=== PATIENT | female | born 1995 | race Caucasian/White ===

== ENCOUNTER 2019-04-02 14:53 | Outpatient (CLI) | payer OTHER, SELFPAY ==
--- NOTE | ~2019-04-02 | XR_ITS ---
EXAMINATION: CT abdomen pelvis wo con, XR abdomen/kub 1V DATE: 04/02/2019 15:27 (accession [id number]), 04/02/2019 15:18 (accession [id number]) INDICATION: Back pain. Hematuria. TECHNIQUE: Computed tomography (CT) of the abdomen and pelvis was performed without intravenous contr ast. The dose-length product was 582.45 mGy-cm. Automated exposure control and iterative reconstructi on technique were employed. Correlative KUB. COMPARISON: None. FINDINGS: Lung bases are unremarkable. Heart size normal. No pleural or pericardial effusion. No significant vascular abnormality. No lymphadenopathy. There is a 3 mm left UVJ stone with moderate left hydroureteronephrosis and periureteral edema. There are nonobstructing bilateral renal stones. The UVJ stone is identifiable on KUB. The liver, spleen, pancreas, adrenal glands are unremarkable. Nonobstructive bowel gas pattern. Jerrica l appendix. No abnormal pelvic masses or fluid collections. Gallbladder is present. IMPRESSION: 1. 3 mm left UVJ stone with moderate left hydroureteronephrosis. 2: Bilateral nephrolithiasis. Reviewed, dictated and finalized at location A. EM SUPPORT ANALYST IMPRESSION: 1. 3 mm left UVJ stone with moderate left hydroureteronephrosis. 2: Bilateral nephrolithiasis.
[2019-04-02 15:52] LABS: Hematocrit 42.6 % (37.0-47.0); Hemoglobin 14.1 g/dL (12.0-15.0); Mean Corpuscular HGB Conc 33.1 g/dl (32-36); Mean Corpuscular Volume 87.5 fl (80-100); Platelet Count Result 326 k/mm3 (150-375); Red Blood Count 4.87 M/mm3 (4.2-5.4); Red Cell Distribution Width 12.5 % (11.5-14.5); White Blood Count 13.9 K/mm3 (4.5-10.0)
[2019-04-02 16:03] LABS: Blood Urea Nitrogen 9 mg/dL (7-17); Calcium 9.7 mg/dL (8.4-10.2); Carbon Dioxide 25 mmol/L (22-30); Chloride 106 mmol/L (98-107); Estimated Glomerular Filt Rate > 60; Glucose 104 mg/dL (65-105); Potassium 4.4 mmol/L (3.4-5.0); Sodium 141 mmol/L (137-145)
== END 2019-04-02 14:54 | disposition home or self-care (01) ==
PROVIDERS: PCP Family Medicine; Visit Provider Nurse Practitioner Family
DX: M54.9 Dorsalgia, unspecified (principal); N20.2 Calculus of kidney with calculus of ureter
CPT/HCPCS: 36415; 74018; 74176; 80048; 85027

== ENCOUNTER 2022-05-08 14:42 | Emergency (ER) | payer OTHER, SELFPAY ==
--- NOTE | ~2022-05-08 | XR_ITS ---
EXAMINATION: XR chest 2V DATE: 05/08/2022 15:23 INDICATION: Kelly of front of body. TECHNIQUE: Frontal and lateral views of the chest were obtained. COMPARISON: CT abdomen and pelvis 04/02/2019 FINDINGS: The chest demonstrates clear lungs without pneumonia, pleural effusion, or pneumothorax. Th e heart size is normal. IMPRESSION: 1. No acute cardiopulmonary disease. Reviewed, dictated and finalized at location A. PRESIDENT OF TALENT ACQUISITION
[2022-05-08 14:45] VITALS: BP 147/109; PULSE 84; RESP 18; TEMP 36.6; O2SAT 100
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
[2022-05-08] MEDS: MORPHINE SULFATE (*CRX) 4 MG/ML INJ IM (15:06)
[2022-05-08] MEDS: LACTATED RINGERS 2,000 ML 999 ML IV CONT (15:08)
[2022-05-08] MEDS: TETANUS,DIPHTHERIA,AC PERTUSSIS ADULT 0.5 ML (ADACEL) IM (15:08)
[2022-05-08] MEDS: BACITRACIN OINTMENT 15 GM TUBE 1 APPLIC TOPICAL (15:09)
[2022-05-08 15:18] LABS: Basophils Absolute Auto 0.08 K/mm3 (0.00-0.10); Basophils Percent Auto 0.8 % (0.0-1.0); Eosinophils Absolute Auto 0.41 K/mm3 (0.02-0.50); Hematocrit 42.8 % (35.0-49.0); Hemoglobin 14.3 g/dL (12.0-15.0); Immature Granulocyte Absolute 0.03 K/mm3 (0.00-0.00); Immature Granulocyte Percent A 0.3 % (0.0-0.0); Lymphocytes Absolute Auto 2.84 K/mm3 (1.10-4.50); Mean Corpuscular HGB Conc 33.4 g/dL (32.0-36.0); Mean Corpuscular Hemoglobin 28.8 pg (27.0-31.0); Mean Corpuscular Volume 86.3 fL (78.0-102.0); Mean Platelet Volume 9.6 fl (9.2-11.8); Monocytes Absolute Auto 0.48 K/mm3 (0.10-0.90); Monocytes Percent Auto 4.7 % (2.0-11.0); Neutrophils Absolute Auto 6.3 K/mm3 (1.7-7.2); Neutrophils Percent Auto 62.2 % (50.0-70.0); Platelet Count Result 323 K/mm3 (150-420); Red Blood Count 4.96 M/mm3 (4.20-5.40); Red Cell Distribution Width 12.5 % (11.6-14.4); White Blood Count 10.2 K/mm3 (4.8-10.8)
[2022-05-08 15:19] LABS: Pregnancy On Board Control Positive; Urine Pregnancy Test Negative
[2022-05-08 15:31] VITALS: BP 143/94; PULSE 82; RESP 16; O2SAT 100
[2022-05-08 15:33] LABS: Alanine Aminotransferase 18 U/L (14-59); Albumin Level 3.5 g/dL (3.4-5.0); Alkaline Phosphatase 86 U/L (46-116); Anion Gap 13 mmol/L (8-16); Aspartate Amino Transferase 18 U/L (15-37); Bilirubin,Total 0.3 mg/dL (0.00-1.00); Blood Urea Nitrogen 11 mg/dL (7-18); Calcium 7.5 mg/dL (8.5-10.1); Carbon Dioxide 23 mmol/L (21-32); Chloride 106 mmol/L (98-108); Estimated CRCL calculation 96 ml/min; Estimated Glomerular Filt Rate > 60; Glucose 99 mg/dL (70-99); Osmolality Calculated 293 mOsm/kg (285-295); Potassium 3.6 mmol/L (3.5-5.1); Sodium 142 mmol/L (136-145); Total Protein 7.4 g/dL (6.4-8.2)
--- NOTE | 2022-05-08 15:37 | PC.NURSE ---
WOUNDS CLEANED AND DRESSED AT THIS TIME. PT HAS IVF INFUSING. SIG OTHER AT BEDSIDE. REG AT BEDSIDE AT THIS TIME. WILL CONTINUE TO MONITOR.
[2022-05-08] MEDS: HYDROmorphone HCL INJ (*CRX) 2 MG/ML VIAL 0.5 MG IV PUSH (15:51)
--- NOTE | 2022-05-08 15:53 | PC.NURSE ---
PT UP TO RR AT THIS TIME WITHOUT DIFFICULTY. WILL CONTINUE TO MONITOR.
[2022-05-08 16:16] VITALS: BP 138/84; PULSE 74; RESP 18; O2SAT 99
--- NOTE | 2022-05-08 16:19 | PC.NURSE ---
NO RESP DISTRESS NOTED. PT IS AWAITING DC. PT IS AWARE OF PLAN OF CARE. VSS. SIG OTHER AT BEDSIDE. WILL CONTINUE TO MONITOR.
--- NOTE | 2022-05-08 16:37 | PC.NURSE ---
PT UP TO RR WITHOUT DIFFICULTY. SIG OTHER AT BEDSIDE. ICE CHIPS PROVIDED. NO TONGUE SWELLING NOTED. NO STRIDOR OR WHEEZING NOTED THUS FAR IN ER VISIT.
[2022-05-08 16:41] VITALS: BP 129/97; PULSE 84; RESP 18; O2SAT 100
[2022-05-08 16:42] VITALS: BP 129/78; PULSE 78; RESP 16; O2SAT 99
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
--- NOTE | 2022-05-08 16:59 | PC.NURSE ---
DRESSINGS WERE CLEAN, DRY, AND INTACT UPON DC.
== END 2022-05-08 16:51 | disposition home or self-care (01) ==
PROVIDERS: Emergency Provider Preventive Medicine Aerospace Medicine
DX: T20.20XA Burn of second degree of head, face, and neck, unspecified site, initial encounter (principal); T24.201A Burn of second degree of unspecified site of right lower limb, except ankle and foot, initial encounter; T22.112A Burn of first degree of left forearm, initial encounter; T20.00XA Burn of unspecified degree of head, face, and neck, unspecified site, initial encounter; T31.0 Burns involving less than 10% of body surface; T31.10 Burns involving 10-19% of body surface with 0% to 9% third degree burns; Z23 Encounter for immunization; X03.8XXA Other exposure to controlled fire, not in building or structure, initial encounter
CPT/HCPCS: 36415; 71046; 80053; 81025; 85025; 90471; 90715; 96361; 96374; 96375; 99284; A9270; J1170; J2270; J7120

== ENCOUNTER 2023-06-10 11:40 | Outpatient (CLI) | payer OTHER, SELFPAY ==
--- NOTE | ~2023-06-10 | US_ITS ---
EXAMINATION: US soft tissue lower back DATE: 06/10/2023 11:54 INDICATION: Right lower back lump. TECHNIQUE: Multiple grayscale and Doppler ultrasound images of the lower back were obtained. COMPARISON: None FINDINGS: There is no abnormal mass in the patient's area of concern in right lower back. IMPRESSION: 1. No abnormal mass in the patient's area of concern in right lower back. Reviewed, dictated and finalized at location A.
== END 2023-06-10 11:41 ==
PROVIDERS: PCP Physician Assistant; Visit Provider Physician Assistant
DX: R22.2 Localized swelling, mass and lump, trunk (principal)
CPT/HCPCS: 76705

== ENCOUNTER 2023-07-10 02:25 | Day surgery (SDC) | payer OTHER, SELFPAY ==
[2023-07-05 09:35] VITALS: BMI 28.1
--- NOTE | 2023-07-05 09:41 | PC.NURSE ---
Report to the Outpatient Waiting Room, entrance under the green pavilion located off [facility], at time _0930_ on date _[id number]_. Planned Procedure Time: _1130_. Time changes happen often and if your time is changed the preop area will call you the afternoon before. - You and your visitor will be asked to self-screen and do not enter if you have any COVID symptoms. - A mask is optional within the hospital at this time. Patients may have clear liquids (water, carbonated beverages, clear teas, apple juice) until 3 hours prior to surgery with a maximum of 20 ounces. - No food from midnight until time of surgery Take the following medications with a SIP of water the morning of surgery: __Bupropion, Lo Loestrin Fe DO NOT STOP ANY OF YOUR OTHER PRESCRIPTION MEDICATIONS PRIOR TO SURGERY ?EXCEPT THE FOLLOWING Medications to discontinue per physician Patient stopped Wegovy [id number] Date to take last dose Please no make-up, nail icelandic, hairspray, perfume, deodorant, or body powder the day of surgery. No jewelry (including any body piercings) or valuables the day of surgery, leave them at home. Please take a shower or bath the night before, or the morning of, surgery with an antibacterial soap. Wear comfortable, loose fitting clothing. - Jewelry must be removed prior to entering the operating room. Rings and piercings that are not removed may be cut off. - The hospital will not accept responsibility for valuables. - Please leave all valuables, including medications, at home the day of surgery. If you are going home after surgery, a licensed cpr ambulance driver must drive you home. - NO public transportation without another adult if you receive anesthesia. - We recommend that an adult stay with you for 24 hours following discharge. - We also recommend that you do not drive, make important decision, drink alcoholic beverages, or take any drugs that were not prescribed by your health care provider for at least 24 hours after your discharge time. Follow any additional instructions given to you from your surgeon. If you or anyone in your household have experienced Covid symptoms in the past week, please notify your surgeon or the nurse liaison at the phone number below for possible testing. Telephone instructions given to __Shelby___and asked if any additional questions and then verbalized understanding. Patient advised to call surgeon office or pre surgery nurse liaison [phone] if any additional questions.
[2023-07-10] VITALS (7 sets, daily range): BP systolic 114–129; BP diastolic 77–90; PULSE 76–107; RESP 14–18; TEMP 36.1–36.8; O2SAT 100; BMI 27.7
--- NOTE | 2023-07-10 10:06 | WPDHPUPDATE1 ---
History and Physical Update Update Date/Time: 07/10/23 10:06 History and Physical has been reviewed, including an updated exam of the patient. There are NO changes in the patient's condition. Risks, benefits, and alternatives have been discussed and questions answered. Patient agrees to proceed with procedure.
[2023-07-10] MEDS: LACTATED RINGERS 1,000 ML 30 ML IV CONT (10:57)
--- NOTE | 2023-07-10 11:35 | WPDANESEPPF ---
Anes - Initial Pre Proc Eval Procedure: Operation Date: 07/10/23 11:00 Proposed Procedures p Excision of Subcutaneous Mass Right Lower Back - Rush Henson MD Date/Time: 07/10/23 11:35 Surgeon: Rush Henson MD Pre Op Diagnosis: right lower back mass 5 cm Patient Data Age: 28 Gender: F Height: 1.73 m Weight: 82.8 kg Last Vital Signs Temp 98.2 F 07/10/23 10:54 Pulse 76 07/10/23 10:54 Resp 14 07/10/23 10:54 BP 114/84 07/10/23 10:54 Pulse Ox 100 07/10/23 10:54 O2 Del Method Room Air 07/10/23 10:54 Allergies Allergy/AdvReac Type Severity Reaction Status Date / Time cefixime AdvReac Intermediate Hives / Verified 07/10/23 10:17 Red Face Home Medications Medication Instructions Recorded Confirmed Type norethindrone 1 mg-ethinyl 1 tablet PO DAILY 05/08/22 07/05/23 History estradiol 10 mcg (24)-iron 10 mcg(2) tablet (Lo Loestrin Fe) bupropion HCl 150 mg 24 hr tablet, 300 mg PO QAM #180 tabs 05/12/23 07/05/23 Rx extended release semaglutide (weight loss) 1.7 1.7 mg (0.75 mL) subcut WEEKLY #3 06/19/23 07/05/23 Rx mg/0.75 mL subcutaneous pen mL injector (Wegovy) cetirizine 10 mg tablet (Zyrtec) 10 mg PO DAILY 07/10/23 07/10/23 History Patient hx anesthesia problems: none Family hx anesthesia problems: none Results Review: All pre-operative results and documents have been reviewed as part of the pre-operative evaluation. [facility] Past Medical History Medical History Anxiety BMI 34.0-34.9,adult BMI 37.0-37.9, adult BMI 38.0-38.9,adult Contact dermatitis Overweight with body mass index (BMI) of 28 to 28.9 in adult Surgical History Surgical History History of tonsillectomy Family History Family History Father Blood clot in vein Heart disease Mother Breast cancer Sibling No problems noted. 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 Informed Consent: The patient's anesthetic plan and its attendant risks and benefits were discussed with the patient/family/POA. Questions were solicited and answers provided to the satisfaction of the patient/family/POA.
--- NOTE | 2023-07-10 12:12 | SUR.OPER ---
Patient questioned preoperatively regarding jewelry, which patient denied. It was noted, however, that the patient had an ear ring left in place in left ear. Preop staff notified.
[2023-07-10] MEDS: BUPIVACAINE/EPINEPHRINE 0.5% 10 ML VIAL 20 ML INFILTRATE (12:30)
--- NOTE | 2023-07-10 13:25 | W.PM.PROC2 ---
Procedure Note - Detailed Date of Procedure 07/10/23 Pre-op Diagnosis right lower back mass 5 cm Post-op Diagnosis Other (Two subcutaneous masses right lower back) Procedure Performed Excision 2 subcutaneous masses right lower back-larger was 9 x 7 cm, smaller one was 6 x 6 cm Surgeon Rush Henson MD [employer] Engineering Process Worker Esther Rankin NATURAL GAS TRADER Anesthesia General and Local Indications Patient has lost a lot a weight and noticed a subcutaneous mass just to the right of midline in her lower back. This seems to be painful and tender. She was seen in the office and is taken to surgery now for excision. Findings The larger, more easily palpable, mass was slightly cephalad to the incision that I had drawn on the patient preoperatively. This larger mass was grossly consistent with a lipoma and measured 9 x 7 cm. Directly under the incision, was a smaller but still sizable subcutaneous mass. This measured 6 x 6 cm and was also grossly consistent with a lipoma. Both were excised with no margin. Description of Procedure Patient was checked in the preoperative holding area. She was in a prone position and the more easily palpable mass was noted. There was a 2nd nodule that was smaller and just caudal to the 1st. I gerardo the proposed incision over the larger mass. Patient was then taken to surgery and IV sedation was administered. She was turned in the prone position and prepped and draped. The incision that I had marked was easily see. Patient then started having some emesis. I infiltrated local anesthetic. However, the nausea, emesis, dry heaves persisted. Patient was then returned to a supine position. She was stabilized by the Department of Anesthesia and eventually induced into general anesthesia with endotracheal tube. She was then returned to a prone position. Prep and drape was again carried out. Transversely oriented incision was made over the area previously marked and anesthetized. We dissected down through the subcutaneous and through Arlene's fascia and then encountered an obvious subcutaneous mass consistent with a lipoma. This was carefully dissected from the surrounding tissues. We dissected it out completely. Its attachments were excised and the mass was removed. Immediately after removal, it was obvious that there was another lipomatous portion that had not been noted during the dissection. This was excised as well. The mass measured 6 x 6 cm. Once this was removed, it was obvious there was even a larger mass just cephalad to that. This subcutaneous mass skin. Appeared to be a lipoma and was carefully dissected from surrounding tissues. We dissected the lipoma out completely and divided any fatty tissue attached to it in the deeper spaces of the wound. Cautery was used for hemostasis but blood loss was very minimal. This mesh was measured and measured 9 x 7 cm. Both of these were shelled out from the wound so there was no margin of normal tissue removed with either of the masses. I checked again for hemostasis and all looked good. 3-0 Vicryl interrupted sutures were used to approximate Arlene's fascia. Subcuticular 4-0 Vicryl sutures were then placed to loosely approximate the skin. Finally a running 4-0 Monocryl was used to close the skin. The wound was dressed with Exofin surgical adhesive. Patient was then returned to a supine position. She was awakened and extubated. She was taken to recovery in good condition. Estimated Blood Loss -5 Drains No Packing No Pathology Yes (Two subcutaneous masses as described above, grossly consistent with lipomas) Complications No immediate complications Condition Stable Disposition PACU [facility] Billing Surgery - Charge Forward: Surgery Billing (Excision 2 subcutaneous masses right lower back with no margin-9 cm and 6 cm.)
== END 2023-07-10 14:34 | disposition home or self-care (01) ==
PROVIDERS: PCP Physician Assistant; Visit Provider Surgery
PROC: (CPT 21931; principal; 2023-07-10 11:00)
DX: D17.1 Benign lipomatous neoplasm of skin and subcutaneous tissue of trunk (principal); F41.9 Anxiety disorder, unspecified; Z79.85 Long-term (current) use of injectable non-insulin antidiabetic drugs
CPT/HCPCS: 21931 ×2; 88304; J0330; J2250; J2405; J2704; J3010; J7120

== ENCOUNTER 2024-01-23 01:54 | Emergency (ER) | payer OTHER, SELFPAY ==
--- NOTE | ~2024-01-23 | XR_ITS ---
Portable chest x-ray Comparison: 05/08/2022 Clinical History: Cough, shortness of breath Findings: There is hazy airspace disease the right midlung, with additional focal airspace disease l eft upper lobe. Cardiomediastinal silhouette is stable. Bones and soft tissues are unremarkable. Impression: Findings suspicious for bilateral pneumonia, as detailed above. Reviewed, dictated and finalized at location . [employer] Impression: Findings suspicious for bilateral pneumonia, as detailed above.
[2024-01-23 01:57] VITALS: BP 132/77; PULSE 116; RESP 18; TEMP 37; O2SAT 100
--- NOTE | 2024-01-23 02:01 | ED.URI ---
HPI - URI/Sore Throat General Chief Complaint: Upper Respiratory Infection Stated Complaint: cough, fever, congestion Source: patient Mode of arrival: ambulatory Limitations: no limitations History of Present Illness HPI Narrative: 28-year-old female with a history of obesity on Wegovy presents to the ED with a 3 day history of -- nonproductive cough -- shortness of breath -- intermittent fever -- chest congestion with burning sensation in her lungs on inspiration. MD elicited complaint: fever and cough Onset (ago): day(s) ( Three days) Consistency: constant Description of mucous: clear Able to tolerate fluids by mouth: Yes Exacerbating factors: nothing Relieving factors: nothing Associated symptoms: denies other symptoms, fever and cough Treatments prior to arrival: none Related Data Home Medications Medication Instructions Recorded Confirmed norethindrone 1 mg-ethinyl 1 tablet PO DAILY 05/08/22 01/23/24 estradiol 10 mcg (24)-iron 10 mcg(2) tablet (Lo Loestrin Fe) cetirizine 10 mg tablet (Zyrtec) 10 mg PO DAILY 07/10/23 01/23/24 bupropion HCl 150 mg 24 hr tablet, 300 mg PO QAM 01/23/24 01/23/24 extended release (Wellbutrin XL) Allergies Allergy/AdvReac Type Severity Reaction Status Date / Time cefixime AdvReac Intermediate Hives / Verified 01/23/24 02:05 Red Face Review of Systems Review of Systems: All systems reviewed & are unremarkable except as noted in HPI and below Constitutional: Constitutional: Reports as per HPI and Reports no additional constitutional complaints Eyes: Eyes: Reports as per HPI and Reports no additional eye complaints ENT: Reports system reviewed and no additional complaints, except as documented and Reports as per HPI Cardiovascular: Cardiovascular: Reports as per HPI and Reports no additional cardiovascular complaints Respiratory: Respiratory: Reports as per HPI, Reports no additional respiratory complaints, Reports chest congestion, Reports cough and Reports dyspnea Gastrointestinal: Gastrointestinal: Reports as per HPI and Reports no additional gastrointestinal complaints Genitourinary: Genitourinary: Reports no additional female genitourinary complaints and Reports as per HPI Musculoskeletal: Musculoskeletal: Reports no additional musculoskeletal complaints and Reports as per HPI Integumentary/Breasts: Skin/Breast: Reports system reviewed and no additional complaints, except as docu and Reports as per HPI Neurologic: Reports system reviewed and no additional complaints, except as documented and Reports as per HPI Psychiatric: Psychiatric: Reports no additional psychiatric complaints and Reports as per HPI Endocrine: Endocrine: Reports no additional endocrine complaints and Reports as per HPI Hematologic/Lymphatic: Hematologic/Lymphatic: Reports no additional hematologic/lymphatic complaints and Reports as per HPI Allergic/Immunologic: Allergic/Immunologic: Reports no additional allergic/immunologic complaints and Reports as per HPI [facility] Past Medical History Medical History Anxiety BMI 34.0-34.9,adult BMI 37.0-37.9, adult BMI 38.0-38.9,adult Contact dermatitis Family history of breast cancer in mother Overweight with body mass index (BMI) of 28 to 28.9 in adult Screening for lipid disorders Screening for thyroid disorder Surgical History Surgical History History of tonsillectomy Family History Family History Father Blood clot in vein Heart disease Mother Breast cancer Sibling No problems noted. 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 Tachycardia. Oxygen saturation of 100% on room air. Const: General: no acute distress Nutritional Appearance: well nourished Orientation/consciousness: patient oriented x3 Limitations: no limitations HENMT: Head: normal to inspection Ears: external ears normal Face/Nose/Sinus: Normal external nose present Face and sinus: normal facial exam Mouth: Yes Normal oral and palatal mucosa present Throat: posterior oropharynx normal Eyes: Conjunctivae: conjunctivae normal Pupils: Equal, round and reactive pupils present EOM: EOMs intact bilaterally Direct Ophthalmoscopy: no photophobia Neck: Neck: normal visual inspection, no lymphadenopathy and no meningeal signs Chest: Chest palpation & inspection: normal inspection of the chest Resp: Effort & Inspection: normal respiratory effort Auscultation: clear to auscultation bilaterally Cardio: Rate: regular rate Rhythm: regular rhythm GI: GI Palp: Yes Soft to palpation Auscultation: normal bowel sounds Other: No tenderness/ rigidity /rebound. Back/Spine/Pelvis: Back: no CVA tenderness Skin: General skin exam: normal color Rashes: no rashes Wounds: no wounds Neuro: General: patient oriented x3, moves all extremities, no meningeal signs, no focal motor deficits and CN's II-XI intact bilaterally Cranial nerves: Yes Nystagmus not present Speech: normal speech Gait exam (Neuro): Normal gait present Extrem: General: normal to inspection and no clubbing, cyanosis or edema Psych: Mental Status: mental status grossly normal Affect: normal affect Attitude: cooperative Course Course Emergency Course: right-sided pneumonia Vital Signs Vital signs: Vital Signs Temperature 37.0 C 01/23/24 01:57 Pulse Rate 116 H 01/23/24 01:57 Respiratory Rate 18 01/23/24 01:57 Blood Pressure 132/77 01/23/24 01:57 Pulse Oximetry 100 01/23/24 01:57 Oxygen Delivery Room Air 01/23/24 01:57 Temperature 37.0 C 01/23/24 01:57 Pulse Rate 116 H 01/23/24 01:57 Respiratory Rate 18 01/23/24 01:57 Blood Pressure 132/77 01/23/24 01:57 Pulse Oximetry 100 01/23/24 01:57 Oxygen Delivery Room Air 01/23/24 02:08 MDM - URI/Sore Throat MDM Narrative Medical decision making narrative: community-acquired pneumonia Differential Diagnosis Differential diagnosis: Likely viral infection, bronchitis and influenza Lab Data Attestation: I reviewed the patient's lab results. 01/23/24 02:15 01/23/24 02:15 Labs: Lab Results 01/23/24 Range/Units 02:15 WBC 7.9 (4.8-10.8) K/mm3 RBC 4.41 (4.20-5.40) M/mm3 Hgb 13.1 (12.0-15.0) g/dL Hct 37.6 (35.0-49.0) % MCV 85.3 (78.0-102.0) fL MCH 29.7 (27.0-31.0) pg MCHC 34.8 (32-36) g/dL RDW 12.6 (11.6-14.4) % Plt Count 220 (150-420) K/mm3 MPV 9.3 (9.2-11.8) fl Immature Gran % (Auto) 0.3 H (0.0-0.0) % Neut % (Auto) 72.7 H (50.0-70.0) % Lymph % (Auto) 19.6 (18.0-42.0) % [place] % (Auto) 6.6 (2.0-11.0) % Eos % (Auto) 0.4 L (1.0-6.0) % Baso % (Auto) 0.4 (0.0-1.0) % Lymph # (Auto) 1.55 (1.10-4.50) K/mm3 [place] # (Auto) 0.52 (0.10-0.90) K/mm3 Eos # (Auto) 0.03 (0.02-0.50) K/mm3 Baso # (Auto) 0.03 (0.00-0.10) K/mm3 Abs Immat Gran (auto) 0.02 H (0.00-0.00) K/mm3 Absolute Neuts (auto) 5.76 (1.70-7.20) K/mm3 Absolute Nucleated RBC 0.00 (0.00-0.00) K/mm3 Nucleated RBC % 0.0 (0-0.0) % Sodium 137 (136-145) mmol/L Potassium 3.4 L (3.5-5.1) mmol/L Chloride 99 (98-108) mmol/L Carbon Dioxide 24 (21-32) mmol/L Anion Gap 14 H (4-12) mmol/L BUN 6 L (7-18) mg/dL Creatinine 1.03 H (0.55-1.02) mg/dL Estim Creat Clear Calc 73 ml/min Estimated GFR > 60 (59 - ) Glucose 94 (70-99) mg/dL Calculated Osmolality 281 L (285-295) mOsm/kg Lactic Acid 0.6 (0.4-2.0) mmol/L Calcium 8.4 L (8.5-10.1) mg/dL Total Bilirubin 0.4 (0.00-1.00) mg/dL AST 14 L (15-37) U/L ALT 9 L (14-59) U/L Alkaline Phosphatase 71 (46-116) U/L Total Protein 7.4 (6.4-8.2) g/dL Albumin 3.3 L (3.4-5.0) g/dL Influenza A (RT-PCR) Negative (Negative) Influenza B (RT-PCR) Negative (Negative) RSV (RT-PCR) Negative (Negative) SARS-CoV-2 RNA (RT-PCR) Negative (Negative) Discharge Plan Discharge Clinical Impression: Community acquired pneumonia Qualifiers: Laterality: right Lung location: upper lobe of lung Qualified Code(s): J18.9 - Pneumonia, unspecified organism Patient Disposition: Home, Self-Care Condition: Stable Instructions: Antibiotic Form, Community Acquired Pneumonia (ED) Patient Language: Beninese Prescriptions: New levofloxacin 750 mg tablet 750 mg PO DAILY 5 Days Qty: 5 0RF No Action Lo Loestrin Fe 1 mg-10 mcg (24)/10 mcg (2) tablet 1 tablet PO DAILY bupropion HCl [Wellbutrin XL] 150 mg tablet extended release 24 hr 300 mg PO QAM Wegovy 2.4 mg/0.75 mL pen injector 2.4 mg subcut WEEKLY Qty: 3 3RF cetirizine [Zyrtec] 10 mg Tablet 10 mg PO DAILY Follow-up/Referrals: Edvin Emerson MD [Primary Care Provider] - Time of Disposition: 04:07
--- NOTE | 2024-01-23 02:12 | PCDIET ---
02:10 covid swab sent to lab
[2024-01-23 02:19] LABS: Basophils Absolute Auto 0.03 K/mm3 (0.00-0.10); Basophils Percent Auto 0.4 % (0.0-1.0); Eosinophils Absolute Auto 0.03 K/mm3 (0.02-0.50); Eosinophils Percent Auto 0.4 % (1.0-6.0); Hematocrit 37.6 % (35.0-49.0); Hemoglobin 13.1 g/dL (12.0-15.0); Immature Granulocyte Absolute 0.02 K/mm3 (0.00-0.00); Immature Granulocyte Percent A 0.3 % (0.0-0.0); Lymphocytes Absolute Auto 1.55 K/mm3 (1.10-4.50); Lymphocytes Percent Auto 19.6 % (18.0-42.0); Mean Corpuscular HGB Conc 34.8 g/dL (32-36); Mean Corpuscular Hemoglobin 29.7 pg (27.0-31.0); Mean Corpuscular Volume 85.3 fL (78.0-102.0); Mean Platelet Volume 9.3 fl (9.2-11.8); Monocytes Absolute Auto 0.52 K/mm3 (0.10-0.90); Monocytes Percent Auto 6.6 % (2.0-11.0); Neutrophils Absolute Auto 5.76 K/mm3 (1.70-7.20); Neutrophils Percent Auto 72.7 % (50.0-70.0); Platelet Count Result 220 K/mm3 (150-420); Red Blood Count 4.41 M/mm3 (4.20-5.40); Red Cell Distribution Width 12.6 % (11.6-14.4); White Blood Count 7.9 K/mm3 (4.8-10.8)
--- NOTE | 2024-01-23 02:30 | PC.NURSE ---
DR. Michaels, ERP at patient bedside at this time providing update and results/plan of care information.
[2024-01-23 02:34] LABS: Alanine Aminotransferase 9 U/L (14-59); Albumin Level 3.3 g/dL (3.4-5.0); Alkaline Phosphatase 71 U/L (46-116); Anion Gap 14 mmol/L (4-12); Aspartate Amino Transferase 14 U/L (15-37); Bilirubin,Total 0.4 mg/dL (0.00-1.00); Blood Urea Nitrogen 6 mg/dL (7-18); Calcium 8.4 mg/dL (8.5-10.1); Carbon Dioxide 24 mmol/L (21-32); Chloride 99 mmol/L (98-108); Estimated CRCL calculation 73 ml/min; Estimated Glomerular Filt Rate > 60; Glucose 94 mg/dL (70-99); Osmolality Calculated 281 mOsm/kg (285-295); Potassium 3.4 mmol/L (3.5-5.1); Sodium 137 mmol/L (136-145); Total Protein 7.4 g/dL (6.4-8.2)
[2024-01-23 02:39] LABS: Lactic Acid Reflex 0.6 mmol/L (0.4-2.0)
[2024-01-23] MEDS: levoFLOXacin 750 MG/D5W 150 ML 750 MG/150 ML BAG 100 MG IVPB (02:51)
--- NOTE | 2024-01-23 02:52 | PC.NURSE ---
IV started per Any and medication infusing. patient awake and alert, denies current needs. lights dimmed for comfort. call light within reach.
[2024-01-23 02:55] LABS: Influenza B QL RT-PCR Negative (Negative); SARS-CoV-2 RNA PCR Negative (Negative)
[2024-01-23 02:56] LABS: Influenza A QL RT-PCR Negative (Negative); RSV RNA, RT-PCR Negative (Negative)
[2024-01-23 04:23] VITALS: BP 109/80; PULSE 117; RESP 18; TEMP 36.8; O2SAT 98
--- NOTE | 2024-01-25 13:10 | PC.NURSE ---
PRELIMINARY BLOOD CULTURE RESULTS: NO GROWTH TO DATE.
== END 2024-01-23 04:25 | disposition home or self-care (01) ==
PROVIDERS: Emergency Provider Internal Medicine Critical Care Medicine; PCP Family Medicine
DX: J18.9 Pneumonia, unspecified organism (principal); Z79.899 Other long term (current) drug therapy; Z20.822 Contact with and (suspected) exposure to COVID-19
CPT/HCPCS: 36415; 71045; 80053; 83605; 85025; 87040; 87637; 96365; 99284; J1956

== ENCOUNTER 2024-03-31 12:55 | Outpatient (CLI) | payer OTHER, SELFPAY ==
--- NOTE | ~2024-03-31 | MM_ITS ---
EXAMINATION: MM screening leonarda BI w richy HISTORY: Screening TECHNIQUE: Craniocaudal and mediolateral oblique 3-D tomosynthesis images were obtained and synthetic 2-D images were generated. CAD analysis was submitted and interpreted. COMPARISON: No prior mammogram is available for comparison at this institution. BREAST PARENCHYMAL COMPOSITION: Not dense: There are scattered areas of fibroglandular density. FINDINGS: There is no evidence of suspicious mass, calcification, or architectural distortion to sugg est malignancy in either breast. There has been no suspicious interval change. IMPRESSION: 1. No mammographic evidence of malignancy. 2. Recommend routine screening mammography in one year. BI-RADS Category 1: Negative Reviewed, dictated and finalized at location A. [employer]
--- OUTSIDE RECORDS SUMMARY | 2024-03-31 13:29 | XMS_ITS | Encounter Summary ---
Author Organization [facility] Address [facility] [place] [address] Care Team Providers Care Orthotic/Prosthetic Clinician Name Role Phone Keyanna Spencer MD Primary Care Provider Encounter Details Date Type Department Care Team (Late st Contact Info) Description 06/27/2018 Lab Requisition [facility] Care DermPath Lab [address] [place] [address] Cielo Neal MD [address] [facility] [address] [place] [address] Social History Tobacco Use Types Packs/Day Years Used Date Smoking Tobacco: Never Assessed Sex and Gender Information Value Date Recorded Sex Assigned at Not on file Gender Identity Not on file Sexual Orientation Not on file documented as of this encounter Plan of Treatment Not on file documented as of this encounter Procedures Procedure Name Priority Date/Time Associated Diagnosis Comments DERMATOPATHOLOGY Routine 06/26/2018 12:0 0 AM CDT documented in this encounter Results * DERMATOPATHOLOGY (06/26/2018 12:00 AM CDT) Case Report Dermatopathology Report ? Case: [id number] ? Authorizing Provider: ??Cielo Neal MD ?Collected: ? 06/26/2018 12:00 AM ? Pathologist: ? Genet Swann MD ? Received: ?06/27/2018 05:54 AM ? Specimen: ?Skin, right eyelid ? 1:05 PM CDT DERMATOPATHOLOGY LABORATORY Final Diagnosis Specimen A. 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 The specimen consists of a shave biopsy measuring 3x3x3 mm. Jar 0. 1:05 PM CDT DERMATOPATHOLOGY LABORATORY Microscopic Description Specimen A. SKIN, right eyelid: There is hyperkeratosis, papillomatosis, and acanthosis of the epidermis. The keratinocytes are mature. 1:05 PM CDT DERMATOPATHOLOGY LABORATORY Disclaimer An external and internal positive and negative controls are appropriate for the histochemical, immunohistochemical and immunofluorescence stain(s) in this case (if any), except where stated explicitly. The performance characteristics of the stain(s) cited in this report were developed and its performance characteristic determined by the Dermatopathology Laboratory at [facility], directed by Dr. Rosalind López. These tests need not be, and therefore are not, approved by the [place] Food and Drug Administration. The tests are used for clinical purposes. Billing Codes Specimen Charges Stain Charges 14325 1 1:05 PM CDT DERMATOPATHOLOGY LABORATORY Embedded Images 1:05 PM CDT DERMATOPATHOLOGY LABORATORY Pathology/Cytolog y TISSUE SPECIMEN FROM SKIN / Unknown 06/26/2018 06/27/2018 5:54 AM CDT Cielo Neal MD LAB - PATHOLOGY/CYTO LOGY ORDERABLES DERMATOPATHOLOGY LABORATORY [facility] - Department of Dermatology [address] 5th Floor Lab [address] [phone] documented in this encounter Visit Diagnoses Not on filedocumented in this encounter Care Teams Orthotic/Prosthetic Clinician Relationship Specialty Start Date End Date Keyanna Spencer MD PCP - General 06/26/18 documented as of this encounter
--- OUTSIDE RECORDS SUMMARY | 2024-03-31 13:29 | XMS_ITS | Referral Summary ---
Author Organization [facility] [address] Address [address] [place] [address] Phone Care Team Providers Care Wire Weaver Name Role Phone No, Physician Primary Care Provider [phone] Allergies Active Allergy Reactions Criticality Noted Date Comments Cefixime Unknown As kid, unsure what happen. Medications acyclovir (ZOVIRAX) 800 mg tablet Take 800 mg by mouth daily. 10/13/2017 Active ibuprofen (ADVIL,MOTRIN) 200 mg tab/capIndicatio ns:Cramps Take 2-3 tabs orally every 4-6 hours as needed for pain. 10/30/2017 Active Active Problems No known active problems Social History Tobacco Use Types Packs/Day Years Used Date Smoking Tobacco: Former Cigarettes Q uit: 2016 Smokeless Tobacco: Never Tobacco Cessation:Counseling Given: No Alcohol Use Standard Drinks/Week Comments No 0 (1 standard drink = 0.6 oz pur e alcohol) Personal Safety Answer Date Recorded Getting School Help Needed Not on file 05/17 Comments No Sex and Gender Information Value Date Recorded Sex Assigned at Not on file Legal Sex Female 2:47 AM [employer]ER Gender Identity Not on file Sexual Orientation Not on file Last Filed Vital Signs Vital Sign Reading Time Taken Comments Blood Pressure 123/91 10/31/2017 9:05 AM CDT Pulse 84 10/31/2017 9:05 AM CDT Temperature 36.6 ??C (97.8 ??F) 10/31/2017 9:05 AM CD T Respiratory Rate 17 10/31/2017 9:05 AM CDT Oxygen Saturation 100% 10/29/2017 7:43 PM CDT Inhaled Oxygen Concentration - - Weight 99.8 kg (220 lb) 10/28/2017 4:54 PM CDT Height 172.7 cm (5' 8 ) 10/28/2017 4:54 PM CDT Body Mass Index 33.45 10/28/2017 4:54 PM CDT Plan of Treatment Not on file Insurance Advance Directives For more information, please contact: [phone] * Full Code (Latest Code Status on File) Date Activated Date Inactivated Comments 10/29/2017 11:03 PM 10/31/2017 1:29 PM * Full Code Date Activated Date Inactivated Comments 10/28/2017 1:43 PM 10/29/2017 11:03 PM Full CPR in case of cardiopulmonary arrest Care Teams Wire Weaver Relationship Specialty Start Date End Date No, Physician PCP - General 10/04/17
--- OUTSIDE RECORDS SUMMARY | 2024-03-31 13:29 | XMS_ITS | Clinical Summary ---
Author Organization [facility] Address [address] [place] [address] Care Team Providers Care Chief School Finance Officer Name Role Phone Keyanna Spencer MD Primary Care Provider Source Comments [facility],non-owned Affiliates and Associated Physician Practices is amultiple site organization consisting of ambulatory clinics and hospital sitesin [place], [place], [place] and [place]. This disclosure is being madepursuant to the Care Everywhere program and may not contain all information available regarding this patient. Last updated 17.[facility] [employer] Social History Tobacco Use Types Packs/Day Years Used Date Smoking Tobacco: Never Assessed Sex and Gender Information Value Date Recorded Sex Assigned at Not on file Gender Identity Not on file Sexual Orientation Not on file Plan of Treatment Health Maintenance Due Date Last Done Comments PAP SMEAR 1993 HIV SCREENING 2008 HEPATITIS C SCREENING 03/29/2011 DTAP/TDAP/TD VACCINES (1 - Tdap) 2012 HEPATITIS B VACCINE (1 of 3 - 19+ 3-dose series) 2012 COVID-19 VACCINE ( - 2023-2 5 season) 2023 INFLUENZA VACCINE (#1) 2023 DEPRESSION SCREENING 03/04/2024 ZOSTER VACCINE (1 of 2) 2043 HIB VACCINE Aged Out No longer eligi ble based on patient's age to complete this topic HPV VACCINE Aged Out No longer eligi ble based on patient's age to complete this topic MENINGOCOCCAL (Group B) VACCINE Aged Out No longer eligible based on patient's age to complete this topic MENINGOCOCCAL VACCINE Aged Out No dipak agustin eligible based on patient's age to complete this topic PNEUMOCOCCAL VACCINE Aged Out No long er eligible based on patient's age to complete this topic Care Teams Chief School Finance Officer Relationship Specialty Start Date End Date Keyanna Spencer MD PCP - General 06/26/18
--- OUTSIDE RECORDS SUMMARY | 2024-03-31 13:29 | XMS_ITS | Clinical Summary ---
Author Organization [facility] [address] Address [address] [place] [address] Phone Care Team Providers Care Master Carpenter Name Role Phone No, Physician Primary Care Provider [phone] Allergies Active Allergy Reactions Criticality Noted Date Comments Cefixime Unknown As kid, unsure what happen. Medications acyclovir (ZOVIRAX) 800 mg tablet Take 800 mg by mouth daily. 10/13/2017 Active ibuprofen (ADVIL,MOTRIN) 200 mg tab/capIndicatio ns:Cramps Take 2-3 tabs orally every 4-6 hours as needed for pain. 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 Last Filed Vital Signs Vital Sign Reading [...] Plan of Treatment Not on file Insurance [facility] Advance Directives For more information, please contact: [phone] * Full Code (Latest Code Status on File) Date Activated Date Inactivated Comments 10/29/2017 11:03 PM 10/31/2017 1:29 PM * Full Code Date Activated Date Inactivated Comments 10/28/2017 1:43 PM 10/29/2017 11:03 PM Full CPR in case of cardiopulmonary arrest Care Teams Master Carpenter Relationship Specialty Start Date End Date No, Physician PCP - General 10/04/17
--- OUTSIDE RECORDS SUMMARY | 2024-03-31 13:29 | XMS_ITS | Clinical Summary ---
Author Organization [facility] Address [address] [place] [address]. 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 Gender Identity Not on file Sexual Orientation Not on file Plan of Treatment Health Maintenance Due Date Last Done Comments Cervical Cancer Screening Pa p Smear (Age 30 to 64) Every 3 Years 1993 Annual Physical 1996 Hepatitis C 2011 DTaP, Tdap and Td Vaccines ( 1 - Tdap) 2012 Hepatitis B Vaccines (1 of 3 - 19+ 3-dose series) 2012 Cervical Cancer Screening Pa p with HPV Testing (Age 30 to 64) Every 5 Years 2023 Cervical Cancer Screening with HPV 2023 COVID-19 Vaccine (2023-2 5 season) 2023 Influenza Adult (#1) 2023 HPV Vaccines Aged Out No longer eligi ble based on patient's age to complete this topic Meningococcal Vaccine Aged Out No dipak agustin eligible based on patient's age to complete this topic Pneumococcal Vaccine: Pediat rics (0 to 5 Years) and At-Risk Patients (6 to 64 Years) Aged Out No longer eligible b ased on patient's age to complete this topic RSV Immunizations Under 20 Months Aged Out No longer eligible based on patient's age to complete this topic
--- OUTSIDE RECORDS SUMMARY | 2024-03-31 13:29 | XMS_ITS | Referral Summary ---
Author Organization [facility] Address [address] [place] [address] Care Team Providers Care Splitter Hand Name Role Phone Keyanna Spencer MD Primary Care Provider [phone] Source Comments [facility],non-owned Affiliates and Associated Physician Practices is amultiple site organization consisting of ambulatory clinics and hospital sitesin [place], [place], [place] and [place]. This disclosure is being madepursuant to the Care Everywhere program and may not contain all information available regarding this patient. Last updated 17.[facility] [employer] Social History Tobacco Use Types Packs/Day Years Used Date Smoking Tobacco: Never Assessed Sex and Gender Information Value Date Recorded Sex Assigned at Not on file Gender Identity Not on file Sexual Orientation Not on file Plan of Treatment Not on file Care Teams Splitter Hand Relationship Specialty Start Date End Date Keyanna Spnecer MD PCP - General 06/26/18
--- OUTSIDE RECORDS SUMMARY | 2024-03-31 13:29 | XMS_ITS | Patient Health Summary ---
Author Organization [facility] Address [address] [place] [place] [address] Care Team Providers Care Pulp Cooker Name Role Phone Keyanna Spencer MD Primary Care Provider [phone] Note from [facility],non-owned Affiliates and Associated Physician Practices is amultiple site organization consisting of ambulatory clinics and hospital sitesin [place], [place], [place] and [place]. This disclosure is being madepursuant to the Care Everywhere program and may not contain all information available regarding this patient. Last updated 17.[facility] Social History Tobacco Use Types Packs/Day Years Used Date Smoking Tobacco: Never Assessed Sex and Gender Information Value Date Recorded Sex Assigned at Not on file Gender Identity Not on file Sexual Orientation Not on file Procedures * DERMATOPATHOLOGY(Performed 06/26/2018) Results * DERMATOPATHOLOGY (06/26/2018 12:00 AM CDT) Case Report Dermatopathology Report ? Case: [id number] ? Authorizing Provider: ??Cielo Neal MD ?Collected: ? 06/26/2018 12:00 AM ? Pathologist: ? Genet Swann MD ? Received: ?06/27/2018 05:54 AM ? Specimen: ?Skin, right eyelid ? 1:05 PM CDT DERMATOPATHOLOGY LABORATORY Final Diagnosis Specimen A. 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 Rosalind López. These tests need not be, and therefore are not, approved by the [place] Food and Drug Administration. The tests are used for clinical purposes. Billing Codes Specimen Charges Stain Charges 42993 1 1:05 PM CDT DERMATOPATHOLOGY LABORATORY Embedded Images 1:05 PM CDT DERMATOPATHOLOGY LABORATORY Pathology/Cytolog y TISSUE SPECIMEN FROM SKIN / Unknown 06/26/2018 06/27/2018 5:54 AM CDT Cielo Neal MD LAB - PATHOLOGY/CYTO LOGY ORDERABLES DERMATOPATHOLOGY LABORATORY [facility] - Department of Dermatology [address] [place] [address], [address] Lab [address] [phone] Care Teams Pulp Cooker Relationship Specialty Start Date End Date Keyanna Spencer MD PCP - General 06/26/18
== END 2024-03-31 12:56 | disposition home or self-care (01) ==
LOC: CHSIMG 12:55
PROVIDERS: PCP Family Medicine; Visit Provider Nurse Practitioner Adult Health
DX: Z12.31 Encounter for screening mammogram for malignant neoplasm of breast (principal); Z80.3 Family history of malignant neoplasm of breast
CPT/HCPCS: 77063; 77067